=== PATIENT | female | born 1960 | race Caucasian/White ===

== ENCOUNTER 2018-06-11 23:50 | Emergency (ER) | payer OTHER, MEDICAID ==
[~2018-06-11] VITALS: Ht 152.4 cm; Wt 73.5 kg
[2018-06-11 23:54] VITALS: BP 159/81
--- NOTE | 2018-06-12 01:04 | NUR ---
PT AMBULATED TO BED 02.
[2018-06-12] MEDS ORDERED: DICYCLOMINE HCL LIQUID 20 MG, ALUMINUM HYD/MAG/SIMETHICONE 30 ML, LIDOCAINE VISCOUS 2% ... PO ONE ×3 (01:55)
[2018-06-12] MEDS ORDERED: LORazepam 1 MG TAB PO ONE (01:55)
--- NOTE | 2018-06-12 02:32 | NUR ---
PT STATES GI COCTAIL GIVEN IS HELPING. FEELING BETTER. DECREASED COUGHING UP PHLEGM. ANXIETY DECREASED. VSS. CONTINUE TO MONITOR.
[2018-06-12 03:00] VITALS: BP 151/72
--- NOTE | 2018-06-12 03:00 | NUR ---
DISCHARGE INSTRUCTION PROVIDED. NO CHEST PAIN. NO N/V. DECREASED PHLEGM. DECREASED ANXIETY. VSS. AFEBRILE. PT VERBALIZED UNDERSTANDING.
== END 2018-06-12 03:00 | disposition home or self-care (01) ==
LOC: MED 23:50
DX: J18.9 Pneumonia, unspecified organism (principal); K21.9 Gastro-esophageal reflux disease without esophagitis; F41.9 Anxiety disorder, unspecified
CPT/HCPCS: 71045; 93005; 99283; Q0092

== ENCOUNTER 2018-06-25 22:47 | Emergency (ER) | payer MEDICAID, OTHER ==
[~2018-06-25] VITALS: Ht 152.4 cm; Wt 72.6 kg
[2018-06-25 22:52] VITALS: BP 136/89
--- NOTE | 2018-06-25 22:59 | NUR ---
PT AMBULATED W/ STEADY GATE TO BED 11. VSS, BED IN LOWER LOCKED POSITION, BEDRAILS UP X1.
[2018-06-25] MEDS ORDERED: FLUC100T PO (23:08)
[2018-06-25] MEDS ORDERED: RANI150T8 PO (23:08)
[2018-06-25] MEDS ORDERED: SERT-146 PO (23:08)
[2018-06-25] MEDS ORDERED: OMEP20TC10 PO (23:08)
--- NOTE | 2018-06-25 23:13 | NUR ---
57 YO F BIB SELF PRESENTS TO THE ED C/O FEELING LIKE "THERE IS THICK SPIT IN MY THROAT" AND COUGH. PT STATES PRIOR URI 1 MONTH AGO. PT ALSO STATES SHE IS FEELING ANXIOUS. -- PT APPEARS ANXIOUS AND FIDGETS. A/O X 4. FOLLOWS COMMANDS, ANSWERS QUESTIONS APPROPRIATELY. -- BREATHING EVEN AND UNLABORED. BREATH SOUNDS CLEAR. -- PMH: ANXIETY, GERD
[2018-06-26] MEDS ORDERED: LORazepam 2 MG/ML VIAL IM ONE
[2018-06-26 02:33] VITALS: BP 138/72
--- NOTE | 2018-06-26 02:33 | NUR ---
Patient discharged with v/s stable. Written and verbal after care instructions given and explained. Patient verbalized understanding. Ambulatory with assist to car. All questions addressed prior to discharge. Advised to follow up with PMD.
== END 2018-06-26 02:33 | disposition home or self-care (01) ==
LOC: MED 22:47
DX: F41.9 Anxiety disorder, unspecified (principal); F32.9 Major depressive disorder, single episode, unspecified; K21.9 Gastro-esophageal reflux disease without esophagitis; E78.5 Hyperlipidemia, unspecified; Z79.899 Other long term (current) drug therapy; Z98.890 Other specified postprocedural states
CPT/HCPCS: 96372; 99284; J2060

== ENCOUNTER 2018-08-15 22:19 | Emergency (ER) | payer OTHER, MEDICAID ==
[~2018-08-15] VITALS: Ht 152.4 cm; Wt 77.1 kg
[~2018-08-15 22:19] MED LIST: FLUC100T PO; OMEP20TC10 PO; RANI150T8 PO; SERT-146 PO
[2018-08-15 22:34] VITALS: BP 118/77
[2018-08-15 23:34] LABS: BASOPHILS % (AUTO) 0.6 % (0.0-2.0); EOSINOPHILS # (AUTO) 0.2 K/uL (0-0.4); EOSINOPHILS % (AUTO) 2.9 % (0.0-4.0); HEMATOCRIT 38.5 % (36-48); HEMOGLOBIN 13.2 g/dL (12.0-16.0); LYMPHOCYTES # (AUTO) 2.1 K/uL (2.5-16.5); LYMPHOCYTES % (AUTO) 33.4 % (20.5-51.1); MEAN CORPUSCULAR HEMOGLOBIN 30 pg (27-31); MEAN CORPUSCULAR HGB CONC 34 g/dL (33-37); MEAN CORPUSCULAR VOLUME 88.5 fL (80-94); MONOCYTES # (AUTO) 0.5 K/uL (0.8-1.0); MONOCYTES % (AUTO) 7.5 % (1.7-9.3); NEUTROPHILS # (AUTO) 3.5 K/uL (1.8-7.7); NEUTROPHILS % (AUTO) 55.6 % (42.2-75.2); PLATELET COUNT (AUTO) 314 K/uL (140-450); RED BLOOD CELL COUNT(AUTO) 4.35 MIL/uL (4.20-5.40); RED CELL DISTRIBUTION WIDTH 15.2 % (11.6-13.7); WHITE BLOOD COUNT (AUTO) 6.3 K/uL (4.8-10.8)
[2018-08-15 23:43] LABS: ANION GAP 6.4 (8-16); CARBON DIOXIDE 32.4 mmol/L (21-32); CREATININE 0.7 mg/dL (0.6-1.3); POTASSIUM 3.8 mmol/L (3.5-5.1)
[2018-08-15 23:49] LABS: ALBUMIN 3.2 g/dL (3.4-5.0); TOTAL BILIRUBIN 0.3 mg/dL (0.0-1.0)
--- NOTE | 2018-08-16 00:47 | NUR ---
PT AMBULATED TO ER BED 3
--- NOTE | 2018-08-16 00:50 | NUR ---
PT TO ED WITH C/O ABD PAIN WITH N/V X 2 DAYS. ABD IS SOFT NON TENDER, NO DISTENTION NOTED. BOWEL SOUNDS ACTIVE X 4 QUADRANTS. PT REPORTS PAIN UPON PALPATION TO LLQ. PT PLACED INTO BED, PENDING MD SANDERSON.
--- NOTE | 2018-08-16 01:46 | NUR ---
DR. CHUN AT BEDSIDE FOR EVALUATION.
[2018-08-16] MEDS ORDERED: ONDANSETRON 4 MG ODT PO ONE (02:05)
[2018-08-16] MEDS ORDERED: KETOROLAC 60 MG/2 ML VIAL IM ONE (02:05)
[2018-08-16 02:28] VITALS: BP 118/77
--- NOTE | 2018-08-16 02:28 | NUR ---
Patient discharged with v/s stable. Written and verbal after care instructions given and explained. Patient alert, oriented and verbalized understanding of instructions. Ambulatory with steady gait. All questions addressed prior to discharge. ID band removed. Patient advised to follow up with PMD. Rx of MOTRIN AND ZOFRAN WAS given. Patient educated on indication of medication including possible reaction and side effects. Opportunity to ask questions provided and answered. PT STATED SHE HAD SOME RELIEF FROM THE MEDICATION THAT WERE GIVEN. PAIN LEVEL IS 2/10 AT THIS TIME.
== END 2018-08-16 02:28 | disposition home or self-care (01) ==
LOC: MED 22:19
DX: R10.12 Left upper quadrant pain (principal); R11.2 Nausea with vomiting, unspecified; K21.9 Gastro-esophageal reflux disease without esophagitis; Z90.49 Acquired absence of other specified parts of digestive tract; Z79.899 Other long term (current) drug therapy
CPT/HCPCS: 36415; 80053; 81002; 83690; 85025; 96372; 99283; J1885; Q0162

== ENCOUNTER 2021-03-08 12:31 | Emergency (ER) | payer OTHER, MEDICAID ==
[~2021-03-08] VITALS: Ht 152.4 cm; Wt 103.9 kg
[~2021-03-08 12:31] MED LIST changes: -SERT-146 PO; +SERT-515 PO
[2021-03-08 12:38] VITALS: BP 131/78
--- NOTE | 2021-03-08 12:42 | NUR ---
PT SENT TO LOBBY
[2021-03-08 14:14] LABS: BASOPHILS # (AUTO) 0.1 K/uL (0.00-0.22); BASOPHILS % (AUTO) 0.7 % (0.0-2.0); EOSINOPHILS # (AUTO) 0.2 K/uL (0-0.4); EOSINOPHILS % (AUTO) 2.6 % (0.0-4.0); HEMATOCRIT 39.3 % (36-48); HEMOGLOBIN 13.4 g/dL (12.0-16.0); LYMPHOCYTES # (AUTO) 2.2 K/uL (2.5-16.5); MEAN CORPUSCULAR HEMOGLOBIN 30 pg (27-31); MEAN CORPUSCULAR HGB CONC 34 g/dL (33-37); MEAN CORPUSCULAR VOLUME 87.7 fL (80-94); MONOCYTES # (AUTO) 0.4 K/uL (0.8-1.0); MONOCYTES % (AUTO) 6.5 % (1.7-9.3); NEUTROPHILS % (AUTO) 58.2 % (42.2-75.2); PLATELET COUNT (AUTO) 344 K/uL (140-450); RED BLOOD CELL COUNT(AUTO) 4.47 MIL/uL (4.20-5.40); WHITE BLOOD COUNT (AUTO) 6.9 K/uL (4.8-10.8)
[2021-03-08 14:36] LABS: ALBUMIN 3.2 g/dL (3.4-5.0); ANION GAP 7.6 (8-16); CARBON DIOXIDE 30.1 mmol/L (21-32); CREATININE 0.7 mg/dL (0.6-1.3); POTASSIUM 3.7 mmol/L (3.5-5.1); TOTAL BILIRUBIN 0.3 mg/dL (0.0-1.0)
--- NOTE | 2021-03-08 14:36 | NUR ---
60 years old female alert, oriented x4 presents to er c/o left abdominal pain radiate to left flank.
[2021-03-08] MEDS ORDERED: ACETAMINOPHEN EXTRA STRENGTH 500 MG TAB PO ONE (14:40)
[2021-03-08] MEDS ORDERED: FAMOTIDINE 20 MG/2 ML VIAL IVP ONE (14:40)
[2021-03-08] MEDS ORDERED: ALUMINUM HYD/MAG/SIMETHICONE 30 ML UDC PO ONE (14:40)
[2021-03-08] MEDS ORDERED: diazePAM 5 MG TAB PO ONE (14:40)
[2021-03-08 14:51] LABS: APPEARANCE,URINE CLEAR (CLEAR); BILIRUBIN,URINE NEGATIVE (NEGATIVE); BLOOD, URINE 1+ (NEGATIVE); COLOR,URINE YELLOW (YELLOW); LEUKOCYTE ESTERASE ,URINE NEGATIVE (NEGATIVE); NITRITE, URINE NEGATIVE (NEGATIVE); UGLUCOSE NEGATIVE (NEGATIVE)
[2021-03-08 15:12] LABS: RBC,URINE 0-5 /HPF (0-5); WBC,URINE NONE SEEN /HPF (0-5)
--- NOTE | 2021-03-08 15:32 | NUR ---
MEDS GIVEN PRESCRIBED TOLERATED WELL WILL CONTINUE TO MONITOR.
[2021-03-08] MEDS ORDERED: MAG355OR2 PO (16:33)
[2021-03-08 16:37] VITALS: BP 130/70
--- NOTE | 2021-03-08 16:42 | NUR ---
PATIENT CONDITION STABLE D/C HOME WITH INSTRUCTIONS AFTER CARE REVIEWED UNDERSTOOD LEFT ER AMBULATORY WITH STEADY GAIT.
== END 2021-03-08 16:42 | disposition home or self-care (01) ==
LOC: MED 12:31
DX: R10.32 Left lower quadrant pain (principal); M54.50 Low back pain, unspecified; M53.3 Sacrococcygeal disorders, not elsewhere classified; M54.6 Pain in thoracic spine; K21.9 Gastro-esophageal reflux disease without esophagitis; E78.5 Hyperlipidemia, unspecified; Z90.49 Acquired absence of other specified parts of digestive tract; Z79.899 Other long term (current) drug therapy
CPT/HCPCS: 36415; 74177; 80053; 81001; 81025; 83690; 84484; 85025; 93005; 96374; 99285; J3490; Q9967

== ENCOUNTER 2023-12-24 09:36 | Emergency (ER) | payer MEDICAID, OTHER ==
[~2023-12-24] VITALS: Ht 152.4 cm; Wt 96.6 kg
[~2023-12-24 09:36] MED LIST changes: +MAG355OR2 PO; +OMEP-303 PO; -OMEP20TC10 PO
[2023-12-24 09:46] VITALS: BP 136/73; PULSE 75; RESP 20; TEMP 98; O2SAT 97
[2023-12-24] MEDS: ACETAMINOPHEN EXTRA STRENGTH 500 MG TAB PO ONE (10:42)
[2023-12-24 10:53] LABS: BILIRUBIN,URINE NEGATIVE (NEGATIVE); BLOOD, URINE TRACE-I (NEGATIVE); COLOR,URINE YELLOW (YELLOW); LEUKOCYTE ESTERASE ,URINE TRACE (NEGATIVE); NITRITE, URINE NEGATIVE (NEGATIVE); PROTEIN,URINE TRACE (NEGATIVE); UGLUCOSE NEGATIVE (NEGATIVE); UROBILINOGEN,URINE 0.2 EU/dL (0.2 - 1)
[2023-12-24 10:55] LABS: APPEARANCE,URINE SLIGHTLY HAZY (CLEAR)
[2023-12-24] MEDS: KETOROLAC 30 MG/ML VIAL IVP ONE (10:56)
[2023-12-24 11:13] LABS: BASOPHILS % (AUTO) 0.6 % (0.0-2.0); EOSINOPHILS # (AUTO) 0.1 K/uL (0-0.4); EOSINOPHILS % (AUTO) 1.4 % (0.0-4.0); HEMATOCRIT 39.8 % (36-48); HEMOGLOBIN 13.4 g/dL (12.0-16.0); LYMPHOCYTES # (AUTO) 2.2 K/uL (2.5-16.5); MEAN CORPUSCULAR HEMOGLOBIN 30 pg (27-31); MEAN CORPUSCULAR HGB CONC 34 g/dL (33-37); MEAN CORPUSCULAR VOLUME 88.2 fL (80-94); MONOCYTES # (AUTO) 0.4 K/uL (0.8-1.0); MONOCYTES % (AUTO) 5.8 % (1.7-9.3); NEUTROPHILS % (AUTO) 64.2 % (42.2-75.2); PLATELET COUNT (AUTO) 334 K/uL (140-450); RED BLOOD CELL COUNT(AUTO) 4.51 MIL/uL (4.20-5.40); RED CELL DISTRIBUTION WIDTH 14.2 % (11.6-13.7); WHITE BLOOD COUNT (AUTO) 7.7 K/uL (4.8-10.8)
[2023-12-24 11:15] LABS: BACTERIA,URINE 2+ /HPF (None Seen); MUCUS,URINE 3+ /LPF (None Seen); SQUAMOUS EPITHELIAL CELL,UR 4-10 (MOD) /LPF (0-3 (FEW))
[2023-12-24 11:24] LABS: ANION GAP 10.5 (8-16); CALCIUM 8.7 mg/dL (8.5-10.1); CARBON DIOXIDE 29.2 mmol/L (21-32); CREATININE 0.7 mg/dL (0.6-1.3); POTASSIUM 3.7 mmol/L (3.5-5.1)
[2023-12-24 11:30] LABS: ALBUMIN 3.2 g/dL (3.4-5.0); BILIRUBIN,DIRECT 0.1 mg/dL (0.0-0.3); TOTAL BILIRUBIN 0.7 mg/dL (0.0-1.0); TOTAL PROTEIN, SERUM 6.9 g/dL (6.4-8.2)
[2023-12-24] MEDS ORDERED: ONDA-188 PO (11:31)
[2023-12-24 12:01] VITALS: O2SAT 97
[2023-12-24 12:22] VITALS: BP 122/66; PULSE 74; RESP 18; TEMP 98; O2SAT 97
== END 2023-12-24 12:40 | disposition home or self-care (01) ==
LOC: MED 09:36
DX: R10.32 Left lower quadrant pain (principal); R10.12 Left upper quadrant pain; R11.0 Nausea; R07.89 Other chest pain; R19.7 Diarrhea, unspecified; K21.9 Gastro-esophageal reflux disease without esophagitis; Z90.49 Acquired absence of other specified parts of digestive tract; Z98.890 Other specified postprocedural states; Z79.899 Other long term (current) drug therapy
CPT/HCPCS: 36415; 74176; 80048; 80076; 81001; 83690; 84484; 85025; 87086; 93005; 96374; 99285; J1885

== ENCOUNTER 2024-01-20 17:05 | Emergency (ER) | payer OTHER ==
[~2024-01-20] VITALS: Ht 152.4 cm; Wt 103.1 kg
[~2024-01-20 17:05] MED LIST changes: +ONDA-188 PO
[2024-01-20 17:25] VITALS: BP 102/75; PULSE 79; RESP 18; TEMP 97.7; O2SAT 96
[2024-01-20] MEDS: ACETAMINOPHEN EXTRA STRENGTH 500 MG TAB PO ONE (19:06)
[2024-01-20] MEDS: KETOROLAC 30 MG/ML VIAL IM ONE (19:07)
[2024-01-20] MEDS ORDERED: ACET500T99 PO (23:33)
[2024-01-20] MEDS ORDERED: DICL20GE TP (23:33)
[2024-01-20 23:41] VITALS: BP 120/64; PULSE 60; RESP 18; TEMP 97.7; O2SAT 98
== END 2024-01-20 23:41 | disposition home or self-care (01) ==
LOC: MED 17:05
DX: M25.561 Pain in right knee (principal); K21.9 Gastro-esophageal reflux disease without esophagitis; E11.9 Type 2 diabetes mellitus without complications; Z79.899 Other long term (current) drug therapy
CPT/HCPCS: 73562; 93971; 96372; 99285; J1885; Q0092